=== PATIENT | female | born 1940 | race African-American/Black ===

== ENCOUNTER 2016-10-26 14:53 | Emergency (ER) | payer MEDICARE, OTHER ==
[~2016-10-26] VITALS: Ht 162.6 cm; Wt 75.0 kg
[~2016-10-26 14:53] MED LIST: METFORMIN
[2016-10-26] MEDS ORDERED: IBUPROFEN 600MG TABLET PO STA (15:12)
[2016-10-26 17:05] VITALS: BP 180/70
== END 2016-10-26 17:08 | disposition home or self-care (01) ==
LOC: ER 15:27
DX: R51 Headache (principal); I10 Essential (primary) hypertension; E11.9 Type 2 diabetes mellitus without complications; Z79.84 Long term (current) use of oral hypoglycemic drugs
CPT/HCPCS: 70450; 99284

== ENCOUNTER 2016-12-11 12:28 | Emergency (ER) | payer MEDICARE ==
[~2016-12-11] VITALS: Ht 162.6 cm; Wt 78.0 kg
[2016-12-11] MEDS ORDERED: KETOROLAC 30MG/ML VIAL IV ONE (16:15)
[2016-12-11 17:00] VITALS: BP 183/90
== END 2016-12-11 17:53 | disposition home or self-care (01) ==
LOC: ER 13:09
DX: M54.5 Low back pain (principal); M79.605 Pain in left leg; M79.604 Pain in right leg; M54.30 Sciatica, unspecified side; E11.9 Type 2 diabetes mellitus without complications; I10 Essential (primary) hypertension; Z91.041 Radiographic dye allergy status; Z96.659 Presence of unspecified artificial knee joint
CPT/HCPCS: 96374; 99284; J1885

== ENCOUNTER 2025-01-22 22:28 | Inpatient (IN) | payer MEDICARE, MEDICAID ==
[~2025-01-22] VITALS: Ht 162.6 cm; Wt 84.6 kg
[~2025-01-22 22:28] MED LIST changes: +AMLO10TA80 MT; +ATOR20TA65 MT; +LETR2.5T7 PO
[2025-01-22 22:37] VITALS: O2SAT 99
[2025-01-22] MEDS ORDERED: PANTOPRAZOLE SODIUM 40 MG/VIAL IV ONE (23:30)
[2025-01-22 23:42] LABS: BASOPHILS % 0.9 % (0.0-2.0); EOSINOPHILS % 0.4 % (0.0-5.0); HEMATOCRIT. 47.5 % (36.0-48.0); HEMOGLOBIN. 15.2 g/dL (12.0-16.0); LYMPHOCYTES % 17.7 % (20.0-50.0); MEAN PLATELET VOLUME 10.3 fl (7.4-10.4); MONOCYTES % 3.1 % (2.0-8.0); NEUTROPHILS % 77.9 % (40.0-76.0); PLATELET 260 x1000/uL (130-400); RED BLOOD CELL COUNT 5.57 mill/uL (4.2-5.4); RED CELL DISTRIBUTION WIDTH 14.3 % (11.6-14.6)
[2025-01-22 23:54] LABS: INR 1.3
[2025-01-22 23:56] LABS: CREATININE 1.2 mg/dL (0.6-1.0)
[2025-01-22 23:57] LABS: PROTEIN TOTAL 8.8 g/dL (6.0-8.3); UREA NITROGEN BLOOD 9 mg/dL (9-23)
[2025-01-22 23:58] LABS: ASPARTATE AMINOTRANSFERASE 18 IU/L (<34)
[2025-01-22 23:59] LABS: BILIRUBIN DIRECT 0.3 mg/dL (<=3.0); BILIRUBIN TOTAL 1.1 mg/dL (0.1-1.0)
[2025-01-23] MEDS ORDERED: METHYLPREDNISOLONE 40MG/ML INJ IV ONE (01:15)
[2025-01-23] MEDS: DIPHENHYDRAMINE 50MG/ML VIAL IV ONE (02:02)
[2025-01-23] MEDS: METHYLPREDNISOLONE SOD SUCC 125MG/2ML (ACT-O-VIAL) IV NR (02:02)
[2025-01-23] MEDS: PANTOPRAZOLE SODIUM 40 MG/VIAL IV NR (02:10)
[2025-01-23] MEDS: SODIUM CHLORIDE 0.9% 1,000 ML IV ONE (02:10)
[2025-01-23] MEDS ORDERED: IOHEXOL-350 100 ML BOTTLE ONE (03:33)
[2025-01-23 03:40] VITALS: BP 171/78; PULSE 108; RESP 18; TEMP 36.1956
[2025-01-23 04:00] VITALS: BP 145/79; PULSE 100; RESP 20; TEMP 36.1; O2SAT 99
[2025-01-23] MEDS ORDERED: ACETAMINOPHEN 325MG TABLET PO PRN ×2 (04:15)
[2025-01-23] MEDS ORDERED: DEXTROSE 50% WATER 50ML SYRINGE IV PRN (04:15)
[2025-01-23] MEDS ORDERED: ONDANSETRON HCL 4MG/2ML INJ IV PRN (04:15)
[2025-01-23] MEDS ORDERED: LORA10CA PO (04:52)
[2025-01-23] MEDS ORDERED: ATOR20TA PO (04:52)
[2025-01-23] MEDS ORDERED: LORA-985 MT (04:52)
[2025-01-23] MEDS ORDERED: AMLO5TAB88 PO (04:52)
[2025-01-23] MEDS ORDERED: PRED5DRO24 OP (04:52)
[2025-01-23] MEDS ORDERED: CHOL400D7 PO (04:52)
[2025-01-23] MEDS ORDERED: RIVA20TA PO (04:52)
[2025-01-23] MEDS ORDERED: CARB15DR EACHEYE (04:52)
[2025-01-23] MEDS ORDERED: INSU100I24 SQ (04:52)
[2025-01-23] MEDS ORDERED: MULT-1116 PO (04:52)
[2025-01-23] MEDS ORDERED: CYAN-33 PO (04:52)
[2025-01-23] MEDS ORDERED: FURO-152 PO (04:52)
[2025-01-23] MEDS ORDERED: INSU100C6 SQ (04:54)
[2025-01-23] MEDS: BLOOD SUGAR DIAGNOSTIC STRIP TEST SCH (07:20)
[2025-01-23] MEDS: INSULIN LISPRO 100 UNITS/ML SUBCUT SCH (07:50)
[2025-01-23 08:00] VITALS: BP 154/63; PULSE 76; RESP 18; TEMP 36.6; O2SAT 96
[2025-01-23] MEDS: LETROZOLE 2.5MG TABLET PO SCH (11:10)
[2025-01-23] MEDS: AMLODIPINE 10MG TABLET PO SCH (11:11)
[2025-01-23] MEDS: POLYETHYLENE GLYCOL 3350 (17GM) 1 DOSE PACK PO SCH (11:11)
[2025-01-23] MEDS: METOPROLOL TARTRATE 25MG TABLET PO SCH (11:12)
[2025-01-23 12:00] VITALS: BP 140/56; PULSE 87; RESP 18; TEMP 36.7; O2SAT 96
[2025-01-23 16:00] VITALS: BP 137/60; PULSE 90; RESP 18; TEMP 36.6; O2SAT 96
[2025-01-23] MEDS: SODIUM CHLORIDE 0.9% 1,000 ML IV SCH (17:56)
[2025-01-23 20:00] VITALS: BP 135/60; PULSE 80; RESP 18; TEMP 36.5; O2SAT 100
[2025-01-23] MEDS: ATORVASTATIN CALCIUM 20MG TABLET PO SCH (21:45)
[2025-01-23] MEDS: METOPROLOL SUCCINATE 50MG ER TABLET PO SCH (21:45)
[2025-01-23] MEDS: INSULIN GLARGINE 100 UNITS/ML SUBCUT SCH (21:48)
[2025-01-23] MEDS: INSULIN LISPRO 100 UNITS/ML SUBCUT NR (23:39)
[2025-01-24] VITALS: BP 128/69; PULSE 83; RESP 18; TEMP 36.6; O2SAT 100
[2025-01-24 04:00] VITALS: BP 168/85; PULSE 76; RESP 17; TEMP 36.3; O2SAT 100
[2025-01-24] MEDS: CLONIDINE 0.1MG TABLET PO NR (06:43)
[2025-01-24 08:00] VITALS: BP 119/60; PULSE 77; RESP 17; TEMP 36.5; O2SAT 96
[2025-01-24 08:13] LABS: BASOPHILS % 0.3 % (0.0-2.0); EOSINOPHILS % 0.2 % (0.0-5.0); HEMATOCRIT. 42.8 % (36.0-48.0); HEMOGLOBIN. 13.4 g/dL (12.0-16.0); LYMPHOCYTES % 20.3 % (20.0-50.0); MEAN PLATELET VOLUME 10.4 fl (7.4-10.4); MONOCYTES % 9.5 % (2.0-8.0); NEUTROPHILS % 69.7 % (40.0-76.0); PLATELET 249 x1000/uL (130-400); RED BLOOD CELL COUNT 5.05 mill/uL (4.2-5.4); RED CELL DISTRIBUTION WIDTH 14.1 % (11.6-14.6)
[2025-01-24 08:16] LABS: CREATININE 0.9 mg/dL (0.6-1.0)
[2025-01-24 08:17] LABS: UREA NITROGEN BLOOD 10 mg/dL (9-23)
[2025-01-24 08:19] LABS: PHOSPHORUS 2.7 mg/dL (2.5-4.9)
[2025-01-24] MEDS: PANTOPRAZOLE SODIUM 40 MG/VIAL IV SCH (10:52)
[2025-01-24] MEDS: MAGNESIUM 1 G PREMIX 100 ML IV SCH (11:03)
[2025-01-24 12:00] VITALS: BP 125/58; PULSE 60; RESP 17; TEMP 36.1; O2SAT 100
[2025-01-24 16:00] VITALS: BP 124/43; PULSE 65; RESP 16; TEMP 36.3; O2SAT 96
[2025-01-24] MEDS ORDERED: DEXTROSE 50% WATER 50ML SYRINGE IV PRN (16:45)
[2025-01-24] MEDS: BLOOD SUGAR DIAGNOSTIC STRIP TEST SCH (17:53)
[2025-01-24] MEDS: SODIUM CHLORIDE 0.45% 1,000 ML IV SCH (17:53)
[2025-01-24] MEDS: INSULIN LISPRO 100 UNITS/ML SUBCUT SCH (17:57)
[2025-01-24 18:38] LABS: CLARITY URINE CLEAR (CLEAR); COLOR URINE YELLOW (YELLOW); GLUCOSE URINE 1+ (NEGATIVE); KETONES URINE NEGATIVE (NEGATIVE); LEUKOCYTE ESTERASE URINE 1+ (NEGATIVE); NITRITE URINE NEGATIVE (NEGATIVE); OCCULT BLOOD URINE NEGATIVE (NEGATIVE); PH URINE 6.0 (4.5-8.0); PROTEIN URINE TRACE (NEGATIVE); SPECIFIC GRAVITY URINE 1.012 (1.005-1.030); UROBILINOGEN URINE 1.0 E.U./dL (0.2-1.0)
[2025-01-24 19:01] LABS: *AMPHETAMINES SCREEN URINE NEGATIVE (NEGATIVE); *BARBITURATES SCREEN URINE NEGATIVE (NEGATIVE); *BENZODIAZEPINES SCREEN URINE NEGATIVE (NEGATIVE); *COCAINE SCREEN URINE NEGATIVE (NEGATIVE); CANNABINOID URINE SCREEN NEGATIVE (NEGATIVE); ECSTASY MDMA SCREEN URINE NEGATIVE (NEGATIVE); METHADONE URINE SCREEN NEGATIVE (NEGATIVE); OPIATES URINE SCREEN NEGATIVE (NEGATIVE); PHENCYCLIDINE URINE SCREEN NEGATIVE (NEGATIVE)
[2025-01-24 19:14] LABS: BACTERIA URINE 1+; RBC URINE 0-2 /hpf (0-2); SQUAMOUS EPITHELIAL CELL URINE 1+ /lpf (RARE/1+)
[2025-01-24 20:00] VITALS: BP 143/86; PULSE 98; RESP 19; TEMP 36.9; O2SAT 99
[2025-01-24] MEDS: CEFTRIAXONE 1GM/50ML 50 ML IV SCH (21:49)
[2025-01-25] VITALS: BP 142/45; PULSE 63; RESP 19; TEMP 36.3; O2SAT 98
[2025-01-25 04:00] VITALS: BP 95/62; PULSE 66; RESP 20; TEMP 36.9; O2SAT 99
[2025-01-25 06:53] LABS: BASOPHILS % 0.5 % (0.0-2.0); EOSINOPHILS % 1.5 % (0.0-5.0); HEMATOCRIT. 42.2 % (36.0-48.0); HEMOGLOBIN. 13.5 g/dL (12.0-16.0); LYMPHOCYTES % 27.1 % (20.0-50.0); MEAN PLATELET VOLUME 10.4 fl (7.4-10.4); MONOCYTES % 8.7 % (2.0-8.0); NEUTROPHILS % 62.2 % (40.0-76.0); PLATELET 244 x1000/uL (130-400); RED BLOOD CELL COUNT 5.01 mill/uL (4.2-5.4); RED CELL DISTRIBUTION WIDTH 14.1 % (11.6-14.6)
[2025-01-25 07:34] LABS: FOLIC ACID (FOLATE) SERUM 14.29 ng/mL (>5.38)
[2025-01-25 07:35] LABS: VITAMIN B12 SERUM 1675 pg/mL (211-911)
[2025-01-25 07:39] LABS: CREATININE 0.9 mg/dL (0.6-1.0)
[2025-01-25 07:40] LABS: UREA NITROGEN BLOOD 6 mg/dL (9-23)
[2025-01-25 07:42] LABS: PHOSPHORUS 2.4 mg/dL (2.5-4.9)
[2025-01-25 08:00] VITALS: BP 141/56; PULSE 60; RESP 19; TEMP 36.9; O2SAT 100
[2025-01-25] MEDS: BISACODYL 5MG TABLET PO SCH (09:35)
[2025-01-25] MEDS ORDERED: HEMORRHOIDAL SUPP PR PRN (11:45)
[2025-01-25] MEDS ORDERED: POTASSIUM CHLORIDE 40 MEQ in DEXT 5% WATER 230 ML IV ONE (11:45)
[2025-01-25 12:00] VITALS: BP 153/61; PULSE 57; RESP 18; TEMP 36.7; O2SAT 99
[2025-01-25 16:00] VITALS: BP 112/51; PULSE 59; RESP 15; TEMP 36.9; O2SAT 98
[2025-01-25] MEDS: KCL 20MEQ/100ML X 2 FOR TOTAL KCL 40MEQ/200ML IV SCH (17:08)
[2025-01-25 20:00] VITALS: BP 116/56; PULSE 56; TEMP 36.9; O2SAT 99
[2025-01-25] MEDS: DOCUSATE SODIUM 100MG CAPSULE PO SCH (21:39)
[2025-01-26] VITALS: BP 148/62; PULSE 60; RESP 16; TEMP 36.6; O2SAT 98
[2025-01-26 04:00] VITALS: BP 106/60; PULSE 62; RESP 17; TEMP 36.6; O2SAT 97
[2025-01-26 06:57] LABS: CREATININE 0.8 mg/dL (0.6-1.0); UREA NITROGEN BLOOD < 5 mg/dL (9-23)
[2025-01-26 07:02] LABS: BASOPHILS % 1.0 % (0.0-2.0); EOSINOPHILS % 2.6 % (0.0-5.0); HEMATOCRIT. 46.1 % (36.0-48.0); HEMOGLOBIN. 14.9 g/dL (12.0-16.0); LYMPHOCYTES % 26.4 % (20.0-50.0); MEAN PLATELET VOLUME 10.8 fl (7.4-10.4); MONOCYTES % 10.6 % (2.0-8.0); NEUTROPHILS % 59.4 % (40.0-76.0); PLATELET 225 x1000/uL (130-400); RED BLOOD CELL COUNT 5.41 mill/uL (4.2-5.4); RED CELL DISTRIBUTION WIDTH 14.5 % (11.6-14.6)
[2025-01-26 08:25] VITALS: BP 145/46; PULSE 65; RESP 15; TEMP 36.1; O2SAT 98
[2025-01-26 12:00] VITALS: BP 142/51; PULSE 58; RESP 15; TEMP 36.1; O2SAT 95
[2025-01-26 16:00] VITALS: BP 147/63; PULSE 60; RESP 17; TEMP 36.1; O2SAT 99
[2025-01-26 20:00] VITALS: BP 118/56; PULSE 60; RESP 17; TEMP 36.3; O2SAT 98
[2025-01-27 04:00] VITALS: BP 102/62; PULSE 58; RESP 18; TEMP 36.6; O2SAT 99
[2025-01-27 08:00] VITALS: BP 166/61; PULSE 54; RESP 15; TEMP 36.3; O2SAT 96
[2025-01-27 12:00] VITALS: BP 147/68; PULSE 109; RESP 16; TEMP 36.3; O2SAT 99
[2025-01-27 16:00] VITALS: BP 162/66; PULSE 58; RESP 17; TEMP 36.4; O2SAT 98
[2025-01-27] MEDS: CLONIDINE 0.1MG TABLET PO PRN (16:09)
[2025-01-27 20:00] VITALS: BP 149/59; PULSE 53; RESP 17; TEMP 36.1; O2SAT 99
[2025-01-28] VITALS: BP 129/60; PULSE 51; RESP 18; TEMP 36.4; O2SAT 98
[2025-01-28 04:00] VITALS: BP 130/88; PULSE 52; RESP 18; TEMP 36; O2SAT 99
[2025-01-28 08:00] VITALS: BP 135/92; PULSE 64; RESP 18; TEMP 36.6; O2SAT 97
[2025-01-28 12:00] VITALS: BP 146/62; PULSE 63; RESP 19; TEMP 36.5; O2SAT 98
[2025-01-28 16:00] VITALS: BP 117/72; PULSE 60; RESP 20; TEMP 36.3; O2SAT 99
[2025-01-28 16:02] VITALS: BP 146/62; PULSE 63; RESP 19; TEMP 97.7
== END 2025-01-28 19:00 | DRG 871 ==
LOC: ER 22:28 → EDBEDREQTM 01-23 01:45 → EDBEDREQ 01-23 01:45 → EDBEDREQDT 01-23 01:45 → ENRESERV 01-23 02:25 → 6WST 01-23 03:01 → 6EST 01-28 00:16
PROVIDERS: ADMIT Internal Medicine; ATTEND Internal Medicine
DX: A41.9 Sepsis, unspecified organism (principal); G82.50 Quadriplegia, unspecified; G93.41 Metabolic encephalopathy; G72.81 Critical illness myopathy; N17.9 Acute kidney failure, unspecified; N39.0 Urinary tract infection, site not specified; M87.9 Osteonecrosis, unspecified; E11.22 Type 2 diabetes mellitus with diabetic chronic kidney disease; D50.9 Iron deficiency anemia, unspecified; Z79.01 Long term (current) use of anticoagulants; I12.9 Hypertensive chronic kidney disease with stage 1 through stage 4 chronic kidney disease, or unspecified chronic kidney disease; N18.9 Chronic kidney disease, unspecified; F03.90 Unspecified dementia, unspecified severity, without behavioral disturbance, psychotic disturbance, mood disturbance, and anxiety; E86.0 Dehydration; D25.9 Leiomyoma of uterus, unspecified; E83.52 Hypercalcemia; G51.0 Bell's palsy; K80.20 Calculus of gallbladder without cholecystitis without obstruction; E83.42 Hypomagnesemia; Z74.01 Bed confinement status; H54.7 Unspecified visual loss; M75.00 Adhesive capsulitis of unspecified shoulder; U09.9 Post COVID-19 condition, unspecified; R53.81 Other malaise; E78.5 Hyperlipidemia, unspecified; Z79.4 Long term (current) use of insulin; Z79.811 Long term (current) use of aromatase inhibitors; Z79.899 Other long term (current) drug therapy; Z85.3 Personal history of malignant neoplasm of breast; Z86.718 Personal history of other venous thrombosis and embolism; Z86.73 Personal history of transient ischemic attack (TIA), and cerebral infarction without residual deficits; Z88.1 Allergy status to other antibiotic agents; Z90.12 Acquired absence of left breast and nipple; Z96.653 Presence of artificial knee joint, bilateral; Z99.3 Dependence on wheelchair; K64.8 Other hemorrhoids
CPT/HCPCS: 36415; 71045; 74174; 80048; 80076; 80305; 81003; 82270; 82378; 82607; 82728; 82746; 82962; 83036; 83540; 83550; 83605; 83735; 84100; 84145; 85025; 85044; 86850; 86900; 93005; 93970; 97112; 97162; 97166; 97530; 99291; G0378; J0696; J1200; J1815; J2470; J2919; J3475; J3480; J7030; Q9967